=== PATIENT | male | born 1975 | race Caucasian/White ===

== ENCOUNTER 2020-05-28 12:57 | Emergency (ER) | payer MEDICAID ==
[~2020-05-28] VITALS: Ht 182.9 cm; Wt 90.7 kg
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
[~2020-05-28 12:57] MED LIST: NOHOMEMEDICATIONS; VICODIN 5-5001 EACH PO
[2020-05-28] MEDS ORDERED: QUETIAPINE FUM150 MG PO (13:05)
[2020-05-28] MEDS ORDERED: BENZTROPINE MESY2 MG PO (13:05)
[2020-05-28] MEDS ORDERED: ZOLOFT50 M1 PO (13:05)
[2020-05-28 14:01] VITALS: BP 137/89
== END 2020-05-28 14:02 | disposition home or self-care (01) ==
LOC: M.ERS 12:57
DX: F41.0 Panic disorder [episodic paroxysmal anxiety] (principal); F19.90 Other psychoactive substance use, unspecified, uncomplicated; G89.29 Other chronic pain; M54.9 Dorsalgia, unspecified; Z79.899 Other long term (current) drug therapy